=== PATIENT | male | born 1985 | race Caucasian/White ===

== ENCOUNTER 2019-10-21 04:41 | Emergency (ER) | payer SELFPAY ==
[2019-10-21 04:55] VITALS: BP 172/86; PULSE 80; RESP 17; TEMP 36.8; O2SAT 97; BMI 32.1
--- NOTE | 2019-10-21 05:03 | ED.URI ---
HPI - URI/Sore Throat General Chief Complaint: Upper Respiratory Symptoms Stated Complaint: sore throat ear aches t-4 Time Seen by Provider: 10/21/19 04:49 Source: patient and family Mode of arrival: Family Vehicle Limitations: no limitations History of Present Illness HPI Narrative: 34-year-old male comes in with complaint of sore throat and earaches for 4 days. Patient states on the 2nd day he had a high fever although it was subjective. Patient states that he continues have a sore throat, he denies any nasal congestion, denies any cough. He states that it hurts to swallow. He states his voice is a little bit hoarse but no major changes. Denies any chest pain or shortness of breath, no nausea or vomiting. No other GI or urinary symptoms. No rashes or skin changes. Patient denies any other medical problems, no allergies to medications. No known sick contacts. Related Data Previous Rx's Medication Instructions Recorded amoxicillin 500 mg PO TID #29 tab 10/21/19 Allergies Allergy/AdvReac Type Severity Reaction Status Date / Time No Known Drug Allergies Allergy Verified 10/21/19 04:59 Review of Systems Review of Systems ROS Unobtainable: All systems reviewed & are unremarkable except as noted in HPI and below Patient History Social History Smoking Status: Never smoker Smoking Status: Never smoker alcohol intake frequency: a few times a week Substance Use Type: does not use Exam Narrative Exam Narrative: GEN: well nourished, well appearing male, alert and oriented x 3, patient appears to be in mild distress. HEENT: Atraumatic, pupils are equal round reactive to light, extraocular movements are intact, nares are clear, TMs are clear with no fluid. Throat is erythematous, there are exudates bilaterally with moderate tonsillar enlargement. No uvular deviation. Patient is mildly hoarse with mild cervical lymphadenopathy in the anterior cervical chain bilaterally HEART: Regular rate and rhythm without murmur, clicks, rubs. LUNGS:Lungs clear to auscultation, no wheezes, rales, crackles, chest moves symmetrically ABD:bowel sounds normal, soft, non-tender, no guarding, rebound, rigidity, no masses noted, no hepatosplenomegaly MSCL: full range of motion, normal gait NEURO:CN 2-12 intact, sensation normal SKIN: No rash, no erythema petechiae. Initial Vital Signs Initial Vital Signs: Vital Signs Temperature 98.2 F 10/21/19 04:55 Pulse Rate 80 10/21/19 04:55 Respiratory Rate 17 10/21/19 04:55 Blood Pressure 172/86 H 10/21/19 04:55 Pulse Oximetry 97 10/21/19 04:55 Course Orders Ordered: Discontinued Medications Amoxicillin (Trimox) 500 mg PO NOW ONE Stop: 10/21/19 05:04 Last Admin: 10/21/19 05:08 Dose: 500 mg Documented by: ERIK Dexamethasone (Decadron) 10 mg PO NOW ONE Stop: 10/21/19 05:04 Last Admin: 10/21/19 05:08 Dose: 10 mg Documented by: ERIK Vital Signs Vital signs: Vital Signs - 8 hr 10/21/19 04:55 10/21/19 05:20 Temperature 98.2 F Pulse Rate 80 76 Respiratory Rate 17 15 Blood Pressure 172/86 H Blood Pressure [Right Arm] 142/75 H Pulse Oximetry 97 97 MDM - URI/Sore Throat Lab Data Attestation: I reviewed the patient's lab results. Labs: Point of Care Testing Rapid Strep A Positive Discharge Plan Departure Patient Disposition: Home Clinical Impression: Pharyngitis, streptococcal Discharge Date/Time: 10/21/19 05:21 Instructions: DI for Strep Throat Activity Restrictions/Additional Instructions: Follow-up with primary care in the next week if her symptoms are not improving Continue Tylenol up to a 1000 mg every 8 hours and/or ibuprofen up to 800 mg every 8 hours. Take antibiotics until completely gone. Return to the emergency department for persistent fevers, rapidly worsening swelling of the neck or throat, muffled voice, inability to swallow saliva or secretions, stridor or high-pitched audible wheezing swelling of the face, tongue or other new or concerning symptoms. Prescriptions: New amoxicillin 500 mg tablet 500 mg PO TID Qty: 29 RF: 0
[2019-10-21] MEDS: DEXAMETHASONE 10 MG/ML VIAL PO (05:08)
[2019-10-21] MEDS: AMOXICILLIN 250 MG CAPSULE 500 MG PO (05:08)
[2019-10-21 05:20] VITALS: BP 142/75; PULSE 76; RESP 15; O2SAT 97
== END 2019-10-21 05:21 | disposition home or self-care (01) ==
PROVIDERS: Emergency Provider Emergency Medicine
DX: J02.0 Streptococcal pharyngitis (principal)
CPT/HCPCS: 87880; 99282; 99283; J1100

== ENCOUNTER 2022-09-29 12:16 | Emergency (ER) | payer OTHER, SELFPAY ==
--- NOTE | 2022-09-29 12:20 | DI.RAD.S_ITS ---
PROCEDURE: XR CHEST 1V INDICATIONS: chest pain TECHNIQUE: One view of the chest was acquired. COMPARISON: None. FINDINGS: Surgical changes and devices: None. Lungs and pleura: Lungs are clear. No pleural effusions or pneumothorax. Mediastinum: Mediastinal contours appear normal. Heart size is normal. Bones and chest wall: No suspicious bony lesions. Overlying soft tissues appear unremarkable. IMPRESSION: No acute cardiopulmonary process demonstrated radiographically. Dictated by: Champ Martel M.D. on 09/29/2022 at 14:48 Approved by: Champ Martel M.D. on 09/29/2022 at 14:48
[2022-09-29 12:21] VITALS: BP 150/96; PULSE 93; RESP 15; TEMP 36.8; O2SAT 98; BMI 33.5
[2022-09-29 12:33] LABS: Add Manual Diff / Slide Review NO; Basophils Absolute Auto 100 /uL (0-100); Basophils Percent Auto 0.9 % (0-2); Eosinophils Absolute Auto 600 /uL (0-450); Eosinophils Percent Auto 5.6 % (2-4); Hematocrit 49.4 % (41-53); Hemoglobin 16.6 g/dL (13.5-17.5); Lymphocytes Absolute Auto 3000 /uL (1100-4500); Lymphocytes Percent Auto 27.4 % (25-40); Mean Corpuscular HGB Conc 33.6 % (30-36); Mean Corpuscular Volume 89.3 fL (80-100); Monocytes Absolute Auto 800 /uL (0-900); Monocytes Percent Auto 7.2 % (3-14); Neutrophils Absolute Auto 6400 /uL (1500-7000); Neutrophils Percent Auto 58.9 % (50-75); Platelet Count 225 X10^3/uL (150-400); Red Blood Cell Count 5.52 X10^6/uL (4.5-5.9); Red Cell Distribution Width 13.9 % (11.6-14.8); White Blood Cell Count 10.9 X10^3/uL (4.5-11.0)
[2022-09-29 12:48] LABS: Alanine Aminotransferase 50 IU/L (<50); Albumin 4.7 g/dL (3.5-5.0); Albumin Globulin Ratio 1.3 (1.0-2.8); Alkaline Phosphatase 80 U/L (38-126); Aspartate Aminotransferase 60 IU/L (17-59); BUN Creatinine Ratio 23.7 (6-22); Bilirubin Total 0.7 mg/dL (0.2-1.3); Blood Urea Nitrogen 23 mg/dL (9-20); Calcium 9.3 mg/dL (8.4-10.2); Carbon Dioxide 27 mmol/L (22-32); Chloride 101 mmol/L (98-107); Creatine Kinase 351 U/L (55-170); Estimated Glomerular Filt Rate > 60 mL/min (>60); Globulin 3.7 g/dL (1.7-4.1); Glucose 77 mg/dL (70-100); Lipase 131 U/L (23-300); Magnesium 1.8 mg/dL (1.6-2.3); Potassium 4.2 mmol/L (3.4-5.1); Sodium 136 mmol/L (137-145); Total Protein 8.4 g/dL (6.3-8.2)
[2022-09-29 12:58] LABS: Troponin I < 0.012 ng/mL (0.01-0.034)
[2022-09-29 13:03] LABS: CKMB % Relative Index 0.7 % (1.5-5.0); Creatine Kinase MB 2.45 ng/mL (<2.37); HEMOLYSIS 33 (0-50)
[2022-09-29 15:29] LABS: Troponin I < 0.012 ng/mL (0.01-0.034)
[2022-09-29 15:40] VITALS: BP 152/74; PULSE 87; TEMP 37.7; O2SAT 100
[2022-09-29 17:23] VITALS: BP 139/85; PULSE 78; O2SAT 98
[2022-09-29 17:30] VITALS: BP 134/73; PULSE 76; RESP 14; O2SAT 96
[2022-09-29 18:00] VITALS: BP 137/66; PULSE 69; RESP 13; O2SAT 96
[2022-09-29 18:30] VITALS: BP 138/67; PULSE 73; RESP 14; O2SAT 97
--- NOTE | 2022-09-29 18:41 | ED_ITS ---
HPI - Chest Pain General Chief Complaint: Chest Pain Stated Complaint: chest pain/sob/back pain Time Seen by Provider: 09/29/22 16:20 Source: patient Mode of arrival: Ambulatory Limitations: no limitations History of Present Illness HPI narrative: [place] chase is a 37-year-old man with chest pain. Says he has had intermittent chest pain now for the better part of 5 months. Last night says that he had some small shortness of breath symptoms as well. He called his primary care doctor today who encouraged him to come to the emergency department for further evaluation. Does a lot of heavy weightlifting but never notices the pain during weight workouts or intense cardio workouts either. Notices the pain when he is at rest only. It is not associated with nausea, shortness of breath, fever, cough or exertion as I mentioned. Has no history of coronary disease, diabetes, hypertension, hypercholesterolemia. He has a less than 1 pack year of smoking. He has no family history of early coronary disease. Related Data Previous Rx's Medication Instructions Recorded amoxicillin 500 mg tablet 500 mg PO TID #29 tabs 10/21/19 Allergies Allergy/AdvReac Type Severity Reaction Status Date / Time No Known Drug Allergies Allergy Verified 09/29/22 12:21 Review of Systems Review of Systems Narrative: Complete review of systems is negative other than as noted above. Patient History Social History Smoking Status: Former smoker Smoking Status: Former smoker alcohol intake frequency: a few times a week Substance Use Type: does not use Exam Narrative Exam Narrative: GENERAL: Alert, cooperative and in no distress. HEAD: Atraumatic. Normocephalic. EYES: Sclera are clear without icterus. Extraocular movements are full. ENT: No rhinorrhea. NECK: Supple. Full range of motion. CARDIOVASCULAR: Normal rate and rhythm without murmur gallop or rub. RESPIRATORY: Clear to auscultation. Breath sounds equal bilaterally. No wheezes, rales, or rhonchi. GASTROINTESTINAL: Abdomen soft, non-tender, nondistended. EXTREMITIES: No edema, full range of motion. No obvious trauma. BACK: Normal inspection, no CVA tenderness. NEURO: Nonfocal examination, normal speech SKIN: No rash or erythema of visible areas PSYCH: Normally oriented. Normal range of affect. Appropriate behavior Initial Vital Signs Initial Vital Signs: Vital Signs Temperature 98.2 F 09/29/22 12:21 Pulse Rate 93 H 09/29/22 12:21 Respiratory Rate 15 09/29/22 12:21 Blood Pressure 150/96 H 09/29/22 12:21 Pulse Oximetry 98 09/29/22 12:21 Oxygen Delivery Method 09/29/22 12:21 Scores HEART Score Heart Score history: Slightly Suspicious Heart Score EKG: Normal Heart Score Age: < 45 years old Heart Score risk factors: No known risk factors Heart Score troponin: < or = to normal limit Heart Score Total: 0 PERC Score Age greater than or equal to 50 years: No Heart rate greater than or equal to 100 bpm: No Room Air O2 Sat less than 95%: No Unilateral leg swelling: No Recent trauma or surgery: No Hemoptysis: No Prior PE or DVT: No Hormone Use: No Total PERC Score: 0 Course Orders Ordered: ED Orders 09/29/22 12:20 XR chest 1V Stat 09/29/22 12:24 Complete Blood Count AUTO DIFF Stat Comprehensive Metabolic Panel Stat Lipase Stat Magnesium Stat Troponin & CK Cardiac Panel Stat 09/29/22 12:35 EKG-12 Lead Stat 09/29/22 14:33 EKG-12 Lead Stat 09/29/22 14:55 Trop I [Troponin I] Stat Vital Signs Vital signs: Vital Signs - 8 hr 09/29/22 12:21 09/29/22 15:40 Temperature 98.2 F 99.9 F H Pulse Rate 93 H 87 Respiratory Rate 15 Blood Pressure 150/96 H 152/74 H Pulse Oximetry 98 100 Oxygen Delivery Method Room Air Room Air MDM - Chest Pain Lab Data Result diagrams: 09/29/22 12:24 09/29/22 12:24 Labs: Lab Results 09/29/22 09/29/22 09/29/22 Range/Units 12:24 12:24 14:55 WBC 10.9 (4.5-11.0) X10^3/uL RBC 5.52 (4.5-5.9) X10^6/uL Hgb 16.6 (13.5-17.5) g/dL Hct 49.4 (41-53) % MCV 89.3 (80-100) fL MCH 30.0 (26-34) PG MCHC 33.6 (30-36) % RDW 13.9 (11.6-14.8) % Plt Count 225 (150-400) X10^3/uL Neut % (Auto) 58.9 (50-75) % Lymph % (Auto) 27.4 (25-40) % [place] % (Auto) 7.2 (3-14) % Eos % (Auto) 5.6 H (2-4) % Baso % (Auto) 0.9 (0-2) % Neut # (Auto) 6400 (0675-9471) /uL Lymph # (Auto) 3000 (0568-6970) /uL [place] # (Auto) 800 (0-900) /uL Eos # (Auto) 600 H (0-450) /uL Baso # (Auto) 100 (0-100) /uL Sodium 136 L (137-145) mmol/L Potassium 4.2 (3.4-5.1) mmol/L Chloride 101 (98-107) mmol/L Carbon Dioxide 27 (22-32) mmol/L BUN 23 H (9-20) mg/dL Creatinine 0.97 (0.66-1.25) mg/dL Estimated GFR > 60 (>60) mL/min BUN/Creatinine Ratio 23.7 H (6-22) Glucose 77 (70-100) mg/dL Calcium 9.3 (8.4-10.2) mg/dL Magnesium 1.8 (1.6-2.3) mg/dL Total Bilirubin 0.7 (0.2-1.3) mg/dL AST 60 H (17-59) IU/L ALT 50 H (<50) IU/L Alkaline Phosphatase 80 (38-126) U/L Total Creatine Kinase 351 H (55-170) U/L CK-MB (CK-2) 2.45 H (<2.37) ng/mL CK-MB (CK-2) Rel Index 0.7 L (1.5-5.0) % Troponin I < 0.012 < 0.012 (0.01-0.034) ng/mL Total Protein 8.4 H (6.3-8.2) g/dL Albumin 4.7 (3.5-5.0) g/dL Globulin 3.7 (1.7-4.1) g/dL Albumin/Globulin Ratio 1.3 (1.0-2.8) Lipase 131 (23-300) U/L Imaging Data Chest x-ray: Radiologist's Impression: IMPRESSION:? No acute cardiopulmonary process demonstrated radiographically. ? ? Dictated by: Champ Martel M.D. on 09/29/2022 at 14:48 ? ? Approved by: Champ Martel M.D. on 09/29/2022 at 14:48 ? ECG Data Interpretation: Two separate EKGs obtained the 1st 1 at 2:49 p.m. the previous at 12:35 p.m.. Both of these EKGs are normal with sinus rhythm. No QTC prolongation. No acute ischemic changes on either. MDM Narrative Medical decision making narrative: PERC score negative, heart score 0. I do not suspect acute coronary syndrome or ischemia. I do not suspect pulmonary embolism nor aortic dissection nor other acute dangerous chest pathology. I think outpatient follow-up is most appropriate. I suspect a musculoskeletal cause for his pain. Discharge Plan Departure Patient Disposition: Home Clinical Impression: Chest pain Activity Restrictions/Additional Instructions: Thank you for your patients with us. Thank you for trusting us with your healthcare. Fortunately, no immediately dangerous cause for chest pain is identified or suspected at this time. Things I have considered include angina (heart pain), heart attack, pulmonary embolism, aortic dissection, pneumonia, pneumothorax, but none of these are present based on physical examination, history and testing done including x-ray, EKG and laboratory data. I think it is safe for you to follow-up with your primary care doctor to discuss possible other etiologies. I think most likely this is musculoskeletal pain but further testing may be required to prove that. Please return to the emergency dep artment for fainting, severe unrelenting chest pain or other severe symptoms. Prescriptions: No Action amoxicillin 500 mg tablet 500 mg PO TID Qty: 29 0RF Rx Instructions: Patient had first dose in ER. Referrals: Katherine Ro PA-C [Primary Care Provider] -
== END 2022-09-29 19:02 | disposition home or self-care (01) ==
PROVIDERS: Emergency Medicine; Emergency Provider Family Medicine Addiction Medicine; PCP Physician Assistant
DX: R07.9 Chest pain, unspecified (principal); R06.02 Shortness of breath
CPT/HCPCS: 36415; 71045; 80053; 82550; 82553; 83690; 83735; 84484; 85025; 93005; 99283; 99284